=== PATIENT | male | born 1980 | race Caucasian/White ===

== ENCOUNTER 2018-03-29 10:56 | Emergency (ER) | payer OTHER, BC ==
[2018-03-29 11:09] VITALS: BP 125/70
[2018-03-29] MEDS ORDERED: DEXAMETHASONE 10 MG/ML VIAL PO STA (11:59)
[2018-03-29] MEDS ORDERED: CHERRY SYRUP 10 ML UDC PO ONE (12:12)
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
== END 2018-03-29 13:46 | disposition home or self-care (01) ==
LOC: ED 10:56
DX: F43.11 Post-traumatic stress disorder, acute (principal); S63.502A Unspecified sprain of left wrist, initial encounter; V49.49XA Driver injured in collision with other motor vehicles in traffic accident, initial encounter; F17.200 Nicotine dependence, unspecified, uncomplicated
CPT/HCPCS: 29125; 73110; 99283; A9270

== ENCOUNTER 2019-03-16 20:59 | Emergency (ER) | payer BC ==
--- NOTE | 2019-03-16 22:08 | ED Physician Documentation ---
PD HPI HEENT - Stated complaint Stated Complaint: R EAR PX - Chief complaint Chief Complaint: Heent - History obtained from History obtained from: Patient - History of Present Illness Timing - onset: How many days ago (5) Timing - duration: Days (5) Timing - details: Gradual onset, Other (worsening) Severity Comments: moderate pain, swelling Location: Right ear Improves: Other (ibuprofen) Worsens: Other (touching the ear). No: Swalllowing, Noise, Temperatures Associated symptoms: Swollen nodes. No: Fever, Congestion, Rhinorrhea, Trismus, Unable to swallow, Facial swelling, Headache, Cough Recently seen: Clinic (was seen in urgent care and first given augmentin 5 days ago then saw them yesterday and just today started on cipro otic drops for otorrhea.) - Treatment prior to arrival Treatment prior to arrival: ear drops and augmentin Review of Systems Ten Systems: 10 systems reviewed and negative Constitutional: denies: Fever, Chills Eyes: reports: Reviewed and negative Ears: reports: Ear pain, Drainage/discharge. denies: Loss of hearing, Tinnitus/ringing Nose: reports: Reviewed and negative Throat: reports: Reviewed and negative. denies: Sore throat GI: reports: Reviewed and negative Musculoskeletal: reports: Reviewed and negative. denies: Neck pain Neurologic: reports: Reviewed and negative Immunocompromised: reports: Reviewed and negative. denies: Immunocompromised PD PAST MEDICAL HISTORY - Past Medical History Cardiovascular: None Respiratory: None Neuro: None Endocrine/Autoimmune: None GI: None : None HEENT: None Psych: None Musculoskeletal: None Derm: None - Past Surgical History Past Surgical History: Yes HEENT: Tonsil/Adenoidectomy - Present Medications Home Medications: Ambulatory Orders Medication Instructions Recorded Confirmed Amoxicillin/Potassium Clav 1 tab PO BID 03/16/19 03/16/19 [Amox-Clav 875-125 mg Tablet] RX: Ofloxacin 0.3% Ophth Drops 10 drops EACHEAR BID 03/16/19 03/16/19 [Ocuflox 0.3% Ophth Drops] RX: traMADol [Ultram] 50 mg PO Q4-6H #12 tablet 03/16/19 - Allergies Allergies/Adverse Reactions: Allergies Allergy/AdvReac Type Severity Reaction Status Date / Time No Known Drug Allergies Allergy Verified 03/29/18 11:04 - Social History Does the pt smoke?: Yes Smoking Status: Current every day smoker Does the pt drink ETOH?: Yes Does the pt have substance abuse?: No - Immunizations Immunizations are current?: Yes - POLST Patient has POLST: No PD ED PE NORMAL - Vitals Vital signs reviewed: Yes - General General: Alert and oriented X 3, No acute distress - HEENT HEENT: Atraumatic, Moist mucous membranes, Pharynx benign, Dentition benign - Neck Neck: Supple, no meningeal sign - Cardiac Cardiac: RRR - Respiratory Respiratory: No respiratory distress - Abdomen Abdomen: Soft, Non tender, Non distended - Male Male : Deferred - Rectal Rectal: Deferred - Derm Derm: Normal color, Warm and dry, No rash - Extremities Extremities: No deformity - Neuro Neuro: Alert and oriented X 3 Eye Opening: Spontaneous Motor: Obeys Commands Verbal: Oriented GCS Score: 15 - Psych Psych: Normal mood, Normal affect PD ED PE EXPANDED - HEENT HEENT: Other (R ear with otorrhea, tenderness to palpation and with pulling on the R ear, with posterior auricular adenopathy. no tenderness or swelling of the mastoid process ) Results - Vitals Vitals: Vital Signs - 24 hr 03/16/19 03/16/19 21:03 22:47 Temperature 36.9 C Heart Rate 86 77 Respiratory 16 18 Rate Blood Pressure 139/90 H 152/89 H O2 Saturation 98 96 Oxygen O2 Source Room air PD MEDICAL DECISION MAKING - ED course Complexity details: considered differential, d/w patient, d/w family ED course: otitis media, otitis externa, otalgia, mastoiditis 39 y/o M with R ear pain with tugging on the ear with associated otorrhea and periauricular lymphadenopathy. this is consistent with otitis externa pt is already on ear drops for this which are appropriate but given amount of otorrhea placed an ear wick for improved administration of medication. He has no signs of mastoiditis on examination. He is not a diabetic and does not have findings of malignant otitis externa. Advised pt to continue the ear drops and f/u with his PCP if symptoms persist. Pt to f/u for recheck in 3 days and to remove the ear wick at that time. Given return precautions if worsening pain fever or new concerning symptoms. Departure - Departure Disposition: 01 Home, Self Care Clinical Impression: Otitis externa Condition: Stable Record reviewed to determine appropriate education?: Yes Instructions: ED Otitis Externa Follow-Up: your, doctor [Other] - Within 3 Days (to recheck your ear and remove the ear wick ) Prescriptions: RX: traMADol [Ultram] 50 mg PO Q4-6H #12 tablet Comments: You have otitis externa. You should continue the antibiotic drops prescribed by the clinic. Follow up with your doctor or the clinic or this ED to have the ear wick that was placed here removed in 3 days. Take ibuprofen and tylenol as needed for pain and tramadol if pain is severe. Discharge Date/Time: 03/16/19 23:19
[2019-03-16] MEDS ORDERED: traMADol 50 MG TABLET PO STA (22:35)
[2019-03-16 22:48] VITALS: BP 152/89
== END 2019-03-16 23:19 | disposition home or self-care (01) ==
LOC: ED 20:59
DX: H60.501 Unspecified acute noninfective otitis externa, right ear (principal); F17.200 Nicotine dependence, unspecified, uncomplicated
CPT/HCPCS: 99282; 99284; A9270